=== PATIENT | female | born 1970 | race Caucasian/White ===

== ENCOUNTER 2018-03-20 12:13 | Emergency (ER) | payer MEDICAID ==
[~2018-03-20] VITALS: Ht 162.6 cm; Wt 67.4 kg
[2018-03-20 12:26] VITALS: Ht 162.6 cm; Wt 67.4 kg
[2018-03-20 15:03] VITALS: BP 120/79
== END 2018-03-20 15:03 | disposition home or self-care (01) ==
LOC: ED 12:13
DX: M54.5 Low back pain (principal); N39.0 Urinary tract infection, site not specified; G89.29 Other chronic pain; Z98.890 Other specified postprocedural states
CPT/HCPCS: J1885